=== PATIENT | male | born 1960 | race Caucasian/White ===

== ENCOUNTER 2018-05-09 09:20 | Day surgery (SDC) | payer OTHER ==
[~2018-05-09 09:20] MED LIST: NS 1,000 ML IV
[2018-05-09] MEDS ORDERED: PROPOFOL 200 MG/20 ML VIAL As Ordered ×2 (10:53→11:22)
== END 2018-05-09 12:06 | disposition home or self-care (01) ==
LOC: M OPP 09:20
DX: Z12.11 Encounter for screening for malignant neoplasm of colon (principal); K64.0 First degree hemorrhoids; K57.30 Diverticulosis of large intestine without perforation or abscess without bleeding; M17.0 Bilateral primary osteoarthritis of knee; M16.0 Bilateral primary osteoarthritis of hip; R21 Rash and other nonspecific skin eruption; R50.9 Fever, unspecified; I71.9 Aortic aneurysm of unspecified site, without rupture; Z96.651 Presence of right artificial knee joint
CPT/HCPCS: G0121

== ENCOUNTER 2020-12-23 16:14 | Emergency (ER) | payer OTHER ==
[~2020-12-23] VITALS: Ht 177.8 cm; Wt 97.7 kg
[2020-12-23] MEDS ORDERED: CEPH500C (16:26)
[2020-12-23] MEDS ORDERED: VITMTA PO (16:26)
[2020-12-23 17:38] LABS: BASO # 0.1 10^3/uL (0.0-0.2); BASO % 0.8 % (0.0-1.0); EOS # 0.1 10^3/uL (0.0-0.5); EOS % 1.5 % (0.0-3.0); HEMATOCRIT 45.6 % (42.0-52.0); HEMOGLOBIN 15.3 g/dl (13.5-17.5); LYMPH # 2.2 10^3/uL (1.5-5.0); LYMPH % 28.5 % (24.0-44.0); MEAN CORPUSCULAR HEMOGLOBIN 30.3 pg (27.0-33.0); MEAN CORPUSCULAR HGB CONC 33.6 g/dl (32.0-36.5); MEAN CORPUSCULAR VOLUME 90.3 fl (80.0-96.0); MONO # 0.9 10^3/uL (0.0-0.8); MONO % 11.7 % (2.0-8.0); NEUTROPHILS # 4.2 10^3/uL (1.5-8.5); NEUTROPHILS % 55.9 % (36.0-66.0); PLATELET COUNT, AUTOMATED 330 10^3/uL (150-450); RED BLOOD COUNT 5.05 10^6/uL (4.30-6.10); WHITE BLOOD COUNT 7.5 10^3/uL (4.0-10.0)
[2020-12-23 18:12] LABS: BLOOD UREA NITROGEN 16 MG/DL (7-18); C REACTIVE PROTEIN QUANTITATIV 5.42 MG/DL (0.00-0.30); CALCIUM LEVEL 9.1 MG/DL (8.8-10.2); CARBON DIOXIDE LEVEL 29 MEQ/L (21-32); CHLORIDE LEVEL 105 MEQ/L (98-107); CREATININE FOR GFR 0.78 MG/DL (0.70-1.30); GLOMERULAR FILTRATION RATE > 60.0 (>49); GLUCOSE, FASTING 91 MG/DL (70-100); POTASSIUM SERUM 3.7 MEQ/L (3.5-5.1); SODIUM LEVEL 139 MEQ/L (136-145)
[2020-12-23 18:18] LABS: ERYTHROCYTE SEDIMENTATION RATE 36 mm/hr (0-20)
--- NOTE | 2020-12-23 19:56 | REP ---
INDICATION: mottled COMPARISON: None. TECHNIQUE: Five views right knee. FINDINGS: There is no evidence of acute fracture, dislocation, or intrinsic bone disease.There is a total knee prosthesis in good position. Calcifications superior to the patella are likely within the quadriceps tendon. IMPRESSION: No fracture or dislocation. <Electronically signed by Chris Lockett > 12/23/201951
--- NOTE | 2020-12-23 21:04 | REPVR ---
PROCEDURE INFORMATION: Exam: US Duplex Right Lower Extremity Veins, Limited Exam date and time: 12/23/2020 7:58 PM Age: 60 years old Clinical indication: Swelling (edema) of limb; Lower extremity, right; Prior surgery; Surgery date: 6+ months; Surgery type: Knee surgery, 5 plus yrs ago TECHNIQUE: Imaging protocol: Real-time Duplex ultrasound of the Right Lower Extremity with 2-D lee scale, color Doppler flow and spectral waveform analysis with image documentation. Limited exam was focused on the right lower extremity veins. COMPARISON: No relevant prior studies available. FINDINGS: Right deep veins: Unremarkable. The common femoral, femoral, proximal profunda femoral and popliteal veins are patent without thrombus. Normal Doppler waveforms. Normal compressibility and/or augmentation response. Right superficial veins: Unremarkable. Saphenofemoral junction is patent without thrombus. Soft tissues: Unremarkable. IMPRESSION: No evidence of deep vein thrombosis. Electronically signed by: Zainab Patel On 12/23/2020 21:03:46 PM
[2020-12-23 22:12] VITALS: BP 148/96
== END 2020-12-23 22:19 | disposition home or self-care (01) ==
LOC: M ED 16:14
DX: R22.41 Localized swelling, mass and lump, right lower limb (principal); I25.10 Atherosclerotic heart disease of native coronary artery without angina pectoris